=== PATIENT | male | born 1970 | race Caucasian/White ===

== ENCOUNTER 2018-07-30 15:41 | Outpatient (CLI) | payer MEDICARE, MEDICAID, SELFPAY ==
[2018-07-30 16:58] LABS: Iron 105 ug/dL (50-175); Total Iron Binding Capacity 339 ug/dL (250-450); Transferrin Sat 31 % (20-55)
[2018-07-30 17:08] LABS: Ferritin 304 ng/mL (8-388); Lipase 128 U/L (73-393)
== END 2018-07-30 16:01 ==
PROVIDERS: PCP Family Medicine; Visit Provider Family Medicine
DX: D50.9 Iron deficiency anemia, unspecified (principal); K85.30 Drug induced acute pancreatitis without necrosis or infection
CPT/HCPCS: 36415; 83690; 82728; 83540; 83550

== ENCOUNTER 2018-11-26 13:24 | Emergency (ER) | payer MEDICARE, MEDICAID, SELFPAY ==
[2018-11-26 13:31] VITALS: BP 151/86; PULSE 109; RESP 69; TEMP 36.8; O2SAT 94
--- NOTE | 2018-11-26 13:45 | W.ED.GENAD ---
Discharge Plan Disposition Patient Disposition: HOME Condition: Stable Discharge Details Chief Complaint: Cellulitis Clinical Impression: Rash Primary Care Provider: Kumar Tinsley ED Provider: Carlos Prather Home Meds and New Rx's Prescriptions: New sulfamethoxazole-trimethoprim [Bactrim DS] 800-160 mg tablet 1 tab PO BID Qty: 14 RF: 0 Continued metoprolol succinate 100 MG tablet extended release 24 hr 100 mg PO DAILY RF: 0 acyclovir 400 MG tablet 400 mg PO BID RF: 0 aspirin [Aspir-Low] 81 MG tablet,delayed release (DR/EC) 81 mg PO DAILY RF: 0 ferrous sulfate 325 MG tablet 325 mg PO DAILY RF: 0 zolpidem 10 MG tablet 10 mg PO HS PRN PRNQty: 1 RF: 0 amitriptyline 150 MG tablet 150 mg PO HS Qty: 1 RF: 0 chlorpromazine 100 MG tablet 500 mg PO DAILY RF: 0 quetiapine 400 MG tablet 800 mg PO DAILY RF: 0 temazepam 30 MG capsule 30 mg PO HS PRN (Reason: Insomnia) RF: 0 lisinopril 10 MG tablet 10 mg PO DAILY RF: 0 Discharge Instructions Instructions: Acute Rash (ED) Additional Instructions: At this time the rash doesn't appear to be a bacteria. We set up a follow up appointment with Dr. Tinsley on 12/01, friday ,at 1:50pm. If the rash becomes hot to touch or you have pain return to the emergency department If you feel you are having severe worsening of pain, difficulty breathing or high fevers return to the emergency department Medical Decision Making 47 yo male with hx of bipolar, prior drug abuse but denies this now, who comes in with rash. He states since yesterday he has had redness to the right forehead, left hand inbetween the thumb and index finger posteriorly, and also on the left elbow. Denies pain, fevesr, new meds, foods or detergents. He states he did have staph infection 7 years or so ago. He has a 4x3cm area of mild erythema of the right forehead without fluctuance, pain with palpation or warmth. On the left hand has 1x2cm area of redness of the left posterior hand that is again not painful or warm to touch, and a 1x1cm on the right medial elbow that againis not tender or warm and has no swelling of any joints will full rom. I suspect contact dermatitis but given his hx I am going to prescribe bactrim with clear instructions to only fill it if he develops pain or rash becomes warm to touch. Set up f/u appt with pcp 12/01 and return precautions given Differential Diagnosis contact dermatitis, urticaria, cellulitis HPI General Mode of arrival: ambulatory. Date/Time Provider Initiated Documentation: 11/26/18 13:35. Limitations to Documentation: no limitations. Information obtained by: patient. History of Present Illness 47 year old M presents to the emergency department with the chief complaint of rash, and is localized to the head, right and upper extremity. Patient reports no radiation. Patient started experiencing this day(s) (1) and it has been constant. No relieving factors improve symptom(s), No exacerbating factors reported . Patient did receive the following treatments prior to arrival, none Related Data Home Medications Medication Instructions Recorded Confirmed metoprolol succinate 100 mg PO DAILY 03/06/13 11/26/18 acyclovir 400 mg PO BID 07/26/14 11/26/18 aspirin [Aspir-Low] 81 mg PO DAILY 07/26/14 11/26/18 ferrous sulfate 325 mg PO DAILY 07/26/14 11/26/18 amitriptyline 150 mg PO HS #1 tablet 09/16/15 11/26/18 zolpidem 10 mg PO HS PRN PRN #1 tab 09/16/15 11/26/18 chlorpromazine 500 mg PO DAILY 06/25/16 11/26/18 lisinopril 10 mg PO DAILY 06/25/16 11/26/18 quetiapine 800 mg PO DAILY 06/25/16 11/26/18 temazepam 30 mg PO HS PRN 06/25/16 11/26/18 sulfamethoxazole-trimethoprim 1 tab PO BID #14 tab 11/26/18 [Bactrim DS] Previous Rx's Medication Instructions Recorded amitriptyline 150 mg PO HS #1 tablet 09/16/15 zolpidem 10 mg PO HS PRN PRN #1 tab 09/16/15 sulfamethoxazole-trimethoprim 1 tab PO BID #14 tab 11/26/18 [Bactrim DS] Allergies Allergy/AdvReac Type Severity Reaction Status Date / Time No Known Allergies Allergy Unverified 11/26/18 13:34 General Stated Complaint: Cellulitis EFREN: 3 Review of Systems Review of Systems All systems reviewed & are unremarkable except as noted in HPI and below Constitutional Denies chills, Denies fever(s) and Denies weakness ENT Denies change in voice Cardiovascular Denies chest pain and Denies dyspnea Respiratory Denies cough and Denies dyspnea Gastrointestinal Denies abdominal pain, Denies nausea and Denies vomiting Genitourinary Denies dysuria Musculoskeletal Denies joint swelling Neurologic Denies weakness Endocrine Denies heat intolerance [facility] Medical History Alcohol abuse Bipolar 1 disorder Chronic back pain Hypertension Schizoaffective disorder Surgical History EGD/COLONOSCOPY W/MAC (08/18/15) Family History Mother Personal history of malignant neoplasm Social History Smoking and Tabacco status: Unknown Exam Const General: no acute distress Orientation: alert HENMT Head: no palpable skull fracture Ears: external ears normal General nose exam: external nose normal Mouth: moist mucous membranes Eyes General: appearance normal, both eyes and all related structures Neck Neck: normal visual inspection Resp Effort & Inspection: normal respiratory effort and able to speak in complete sentences Cardio Rate: regular rate Skin General skin exam: elasticity normal and turgor normal Neuro General: alert and oriented x3 Extrem General: normal to inspection Psych Mental Status: mental status grossly normal Course Vital Signs Temperature 36.8 C 11/26/18 13:31 Pulse 109 H 11/26/18 13:31 Respiratory Rate 69 H 11/26/18 13:31 Blood Pressure 151/86 H 11/26/18 13:31 Pulse Oximetry 94 L 11/26/18 13:31 Temperature 36.8 C 11/26/18 13:31 Temperature Source Skin 11/26/18 13:31 Pulse 109 H 11/26/18 13:31 Respiratory Rate 69 H 11/26/18 13:31 Respiratory Effort Non-Labored 11/26/18 13:31 Blood Pressure 151/86 H 11/26/18 13:31 Blood Pressure Position Sitting 11/26/18 13:31 Pulse Oximetry 94 L 11/26/18 13:31 Oxygen Delivery Method Room Air 11/26/18 13:31 Oxygen Flow Rate 0 11/26/18 13:31 Pain Level 0 11/26/18 13:31
--- NOTE | 2018-11-26 13:48 | NUR.NOTE ---
Nursing Note: Appt. made for patient with Dr. Tinsley for @ 1:50pm. Kirsten Simmons.
== END 2018-11-26 13:55 | disposition home or self-care (01) ==
PROVIDERS: Emergency Provider Emergency Medicine; PCP Family Medicine
DX: R21 Rash and other nonspecific skin eruption (principal); I10 Essential (primary) hypertension
CPT/HCPCS: 99283

== ENCOUNTER 2018-12-09 17:58 | Emergency (ER) | payer MEDICARE, MEDICAID, SELFPAY ==
[2018-12-09 18:00] VITALS: BP 139/69; PULSE 94; RESP 16; TEMP 36.4; O2SAT 94
--- NOTE | 2018-12-09 18:14 | ED.GENADUL_ITS ---
Discharge Plan Disposition Patient Disposition: HOME Condition: Stable Discharge Details Chief Complaint: Cellulitis Clinical Impression: Rash Primary Care Provider: Kumar Tinsley ED Provider: Debbie Colin Home Meds and New Rx's Prescriptions: New mupirocin calcium [Bactroban] 2 % cream 1 applic TP BID Qty: 15 RF: 0 cephalexin [Keflex] 500 mg capsule 500 mg PO TID 7 Days Qty: 21 RF: 0 Continued metoprolol succinate 100 MG tablet extended release 24 hr 100 mg PO DAILY RF: 0 acyclovir 400 MG tablet 400 mg PO BID RF: 0 aspirin [Aspir-Low] 81 MG tablet,delayed release (DR/EC) 81 mg PO DAILY RF: 0 ferrous sulfate 325 MG tablet 325 mg PO DAILY RF: 0 zolpidem 10 MG tablet 10 mg PO HS PRN PRNQty: 1 RF: 0 amitriptyline 150 MG tablet 150 mg PO HS Qty: 1 RF: 0 chlorpromazine 100 MG tablet 500 mg PO DAILY RF: 0 quetiapine 400 MG tablet 800 mg PO DAILY RF: 0 temazepam 30 MG capsule 30 mg PO HS PRN (Reason: Insomnia) RF: 0 lisinopril 10 MG tablet 10 mg PO DAILY RF: 0 Discharge Instructions Instructions: Acute Rash (ED) Additional Instructions: Keep area clean and dry. Apply the topical antibiotic ointment to your left hand twice daily for the next few days. If you have any worsening of symptoms, you may fill and start taking the oral antibiotic prescription. Follow-up with your primary care doctor in 1 week for reevaluation. Return immediately to the emergency department any worsening or new concerning symptoms. Discharge Data Discharge Date/Time-TO BE ENTERED AT DEPARTURE: 12/09/18 18:26 Discharge Physician: Debbie Colin Medical Decision Making 47yo M who presents with request for antibiotic prescription. Patient was seen here almost 2 weeks ago for a rash noted to his right forehead, left hand, and right elbow and diagnosed with a mild skin infection and sent home with a prescription for Bactrim only to start if his symptoms do not improve or worsen. Patient states he took and finished the Bactrim and states his rash is nearly but not fully resolved. Patient has an area of faint scaly erythema to his right forehead but no obvious infection. He has a 1 x 1 cm crust with mild surrounding erythema to his left dorsal hand webspace between first and second finger but no evidence of abscess. He also has a patch of scaly hypopigmented papules on right elbow. Overall I am not concerned about any of these areas with an obvious acute infection, only possibly the left hand which I think would improve with topical antibiotics. Will send home with a prescription for Bactroban. Will also give a prescription for Keflex to take if his symptoms worsen. Instructed to f/u with the pcp for re-evaluation and to return here if worse. HPI General Mode of arrival: ambulatory . Date/Time Provider Initiated Documentation: 12/09/18 17:58 . Limitations to Documentation: no limitations . Information obtained by: patient . HPI Narrative: Patient is a 47-year-old male who presents to the ED for a request for an antibiotic prescription. Patient was seen here almost 2 weeks ago for a rash to his left hand, right forehead and right elbow for 1 day. Patient was given a prescription for Bactrim which he was instructed to fill if his symptoms did not improve or worsen. Patient states he took the Bactrim and that his rash improved but states that it is not completely resolved and he is requesting another prescription. He denies any pain associated with his rash, itching or fever. He states he has been eating and drinking normally. Related Data Home Medications Medication Instructions Recorded Confirmed metoprolol succinate 100 mg PO DAILY 03/06/13 12/09/18 acyclovir 400 mg PO BID 07/26/14 12/09/18 aspirin [Aspir-Low] 81 mg PO DAILY 07/26/14 12/09/18 ferrous sulfate 325 mg PO DAILY 07/26/14 12/09/18 amitriptyline 150 mg PO HS #1 tablet 09/16/15 12/09/18 zolpidem 10 mg PO HS PRN PRN #1 tab 09/16/15 12/09/18 chlorpromazine 500 mg PO DAILY 06/25/16 12/09/18 lisinopril 10 mg PO DAILY 06/25/16 12/09/18 quetiapine 800 mg PO DAILY 06/25/16 12/09/18 temazepam 30 mg PO HS PRN 06/25/16 12/09/18 cephalexin [Keflex] 500 mg PO TID 7 Days #21 cap 12/09/18 mupirocin calcium [Bactroban] 1 applic TP BID #15 gm 12/09/18 Previous Rx's Medication Instructions Recorded amitriptyline 150 mg PO HS #1 tablet 09/16/15 zolpidem 10 mg PO HS PRN PRN #1 tab 09/16/15 cephalexin [Keflex] 500 mg PO TID 7 Days #21 cap 12/09/18 mupirocin calcium [Bactroban] 1 applic TP BID #15 gm 12/09/18 Allergies Allergy/AdvReac Type Severity Reaction Status Date / Time No Known Allergies Allergy Unverified 12/09/18 18:06 General Stated Complaint: Cellulitis EFREN: 4 Review of Systems Review of Systems All systems reviewed & are unremarkable except as noted in HPI and below Constitutional Reports as per HPI, Denies chills and Denies fever(s) Eyes Denies blurry vision ENT Denies dizziness, Denies sore throat and Denies throat swelling Cardiovascular Denies chest pain and Denies dyspnea Respiratory Denies cough and Denies dyspnea Gastrointestinal Denies abdominal pain, Denies diarrhea and Denies vomiting Genitourinary Denies hematuria and Denies dysuria Musculoskeletal Denies back pain and Denies numbness Integumentary/Breasts Denies lesions and Reports rash Neurologic Denies dizziness, Denies focal weakness and Denies numbness Allergic/Immunologic Denies throat swelling PFSH Medical History Pancreatitis (Chronic) Alcohol abuse Bipolar 1 disorder Chronic back pain Hypertension Schizoaffective disorder Surgical History EGD/COLONOSCOPY W/MAC (08/18/15) Family History Mother Personal history of malignant neoplasm Social History Smoking and Tabacco status: Unknown alcohol intake: current alcohol intake frequency: a few times a month substance use type: former substance user Exam Const General: cooperative, healthy appearing and no acute distress HENMT Head: normal to inspection Mouth: oral mucosae normal Eyes General: appearance normal, both eyes and all related structures Neck Neck: normal visual inspection Resp Effort & Inspection: normal respiratory effort and able to speak in complete sentences Cardio Rate: regular rate Skin Other: Faint scaly erythema noted to right forehead, nontender, no induration, fluctuance or tenderness. There is a 1 x 1 cm crust noted to the left dorsal webspace between first and second finger with very minimal surrounding erythema and no tenderness to palpation, induration or fluctuance. No abscess noted. There is also a cluster of hypopigmented scaly papules on the olecranon of the right elbow. There is no erythema, edema, tenderness, induration or fluctuance. Neuro General: alert, awake and oriented x3 Motor: muscle tone normal throughout Extrem General: normal to inspection and full ROM Psych Appearance: grossly normal Affect: normal affect Course Vital Signs Temperature 97.5 F L 12/09/18 18:00 Pulse 94 H 12/09/18 18:00 Respiratory Rate 16 12/09/18 18:00 Blood Pressure 139/69 12/09/18 18:00 Pulse Oximetry 94 L 12/09/18 18:00 Temperature 97.5 F L 12/09/18 18:00 Temperature Source Skin 12/09/18 18:00 Pulse 94 H 12/09/18 18:00 Respiratory Rate 16 12/09/18 18:00 Respiratory Effort 12/09/18 18:07 Blood Pressure 139/69 12/09/18 18:00 Blood Pressure Position Sitting 12/09/18 18:00 Pulse Oximetry 94 L 12/09/18 18:00 Oxygen Delivery Method Room Air 12/09/18 18:00 Oxygen Flow Rate 0 12/09/18 18:00 Pain Level 2 12/09/18 18:00
== END 2018-12-09 18:26 | disposition home or self-care (01) ==
PROVIDERS: Emergency Provider Physician Assistant; PCP Family Medicine
DX: R21 Rash and other nonspecific skin eruption (principal); I10 Essential (primary) hypertension
CPT/HCPCS: 99283

== ENCOUNTER 2019-04-24 19:02 | Emergency (ER) | payer MEDICARE, MEDICAID, SELFPAY ==
[2019-04-24 19:03] VITALS: BP 151/94; PULSE 86; RESP 20; TEMP 36.8; O2SAT 93
--- NOTE | 2019-04-24 19:15 | W.ED.GENAD ---
Discharge Plan Disposition Patient Disposition: HOME Condition: Stable Discharge Details Chief Complaint: RashLesion Clinical Impression: Non-healing wound of right heel Primary Care Provider: Kumar Tinsley ED Provider: Carlos Prather Home Meds and New Rx's Prescriptions: New cephalexin 500 mg tablet 500 mg PO TID Qty: 15 RF: 0 No Action metoprolol succinate 100 MG tablet extended release 24 hr 100 mg PO DAILY RF: 0 acyclovir 400 MG tablet 400 mg PO BID RF: 0 aspirin [Aspir-Low] 81 MG tablet,delayed release (DR/EC) 81 mg PO DAILY RF: 0 ferrous sulfate 325 MG tablet 325 mg PO DAILY RF: 0 zolpidem 10 MG tablet 10 mg PO HS PRN PRNQty: 1 RF: 0 amitriptyline 150 MG tablet 150 mg PO HS Qty: 1 RF: 0 quetiapine 400 MG tablet 800 mg PO DAILY RF: 0 lisinopril 10 MG tablet 10 mg PO DAILY RF: 0 mupirocin calcium [Bactroban] 2 % cream 1 applic TP BID Qty: 15 RF: 0 lorazepam 2 mg Tablet 3 mg PO HS RF: 0 metformin 1,000 mg Tablet PO DAILY RF: 0 Discharge Instructions Instructions: Chronic Wound Care (ED) Additional Instructions: follow up with your primary care provider within 1-2 weeks if you have high fevers or severe worsening of pain return to the emergency department Medical Decision Making 48 yo male comes in with right heal wound that he has had since he states he sustained an abrasion while on vacation in [facility]. He took abx while there that he finished a week ago and is not sure of what he took. Comes in today becuase of bleeding. He has 1cm scab on the right posterior heal and has mild erythema that is not warm to touch or tender surrounding it by about 2cm. No crepitus or systemic symptoms to suggest nec fsac, sepsis or osteo. I suspect this is a chronic wound due to his diabetes and I am not convinced it is acutely infeced but pt is requesting abx despite my recommendations. i will start on cephalexin and advised f/u with pcp and return precautions given Differential Diagnosis cellulitis, chronic wound HPI General Mode of arrival: ambulatory. Date/Time Provider Initiated Documentation: 04/24/19 19:06. Limitations to Documentation: no limitations. Information obtained by: patient. History of Present Illness 48 year old M presents to the emergency department with the chief complaint of right heal wound, described as moderate, Quality is described as aching, and is localized to the right and lower extremity. Patient reports no radiation. Patient started experiencing this week(s) (2) and it has been constant. No relieving factors improve symptom(s), No exacerbating factors reported . Patient notes no other symptoms.. Related Data Home Medications Medication Instructions Recorded Confirmed metoprolol succinate 100 mg PO DAILY 03/06/13 04/24/19 acyclovir 400 mg PO BID 07/26/14 04/24/19 aspirin [Aspir-Low] 81 mg PO DAILY 07/26/14 04/24/19 ferrous sulfate 325 mg PO DAILY 07/26/14 04/24/19 amitriptyline 150 mg PO HS #1 tablet 09/16/15 04/24/19 zolpidem 10 mg PO HS PRN PRN #1 tab 09/16/15 04/24/19 lisinopril 10 mg PO DAILY 06/25/16 04/24/19 quetiapine 800 mg PO DAILY 06/25/16 04/24/19 mupirocin calcium [Bactroban] 1 applic TP BID #15 gm 12/09/18 04/24/19 cephalexin 500 mg PO TID #15 tab 04/24/19 lorazepam 3 mg PO HS 04/24/19 04/24/19 metformin mg PO DAILY 04/24/19 Previous Rx's Medication Instructions Recorded amitriptyline 150 mg PO HS #1 tablet 09/16/15 zolpidem 10 mg PO HS PRN PRN #1 tab 09/16/15 mupirocin calcium [Bactroban] 1 applic TP BID #15 gm 12/09/18 cephalexin 500 mg PO TID #15 tab 04/24/19 Allergies Allergy/AdvReac Type Severity Reaction Status Date / Time No Known Allergies Allergy Unverified 04/24/19 19:07 General Stated Complaint: RashLesion EFREN: 4 Review of Systems Review of Systems All systems reviewed & are unremarkable except as noted in HPI and below Constitutional Denies chills, Denies fever(s) and Denies weakness Cardiovascular Denies chest pain and Denies dyspnea Respiratory Denies cough and Denies dyspnea Gastrointestinal Denies abdominal pain, Denies nausea and Denies vomiting Musculoskeletal Denies joint swelling Neurologic Denies weakness [facility] Medical History (Updated 12/09/18 @ 18:13 by Debbie Colin DO) Alcohol abuse Bipolar 1 disorder Chronic back pain Hypertension Pancreatitis (Chronic) Schizoaffective disorder Social History Smoking/Tobacco Use Status: Unknown Alcohol Intake: current Alcohol Intake frequency: a few times a month Drug use: Current Sobriety Substance use type: former substance user Do you feel safe at home: Yes Do you feel safe in your relationship?: Yes Exam Const General: no acute distress Orientation: alert HENMT Head: normal to inspection Ears: external ears normal General nose exam: external nose normal Mouth: moist mucous membranes Eyes General: appearance normal, both eyes and all related structures Neck Neck: normal visual inspection Resp Effort & Inspection: normal respiratory effort and able to speak in complete sentences Cardio Rate: regular rate Skin General skin exam: elasticity normal Neuro General: alert and oriented x3 Extrem General: full ROM and normal capillary refill Psych Mental Status: mental status grossly normal Course Vital Signs Temperature 36.8 C 04/24/19 19:03 Pulse 86 04/24/19 19:03 Respiratory Rate 20 04/24/19 19:03 Blood Pressure 151/94 H 04/24/19 19:03 Pulse Oximetry 93 L 04/24/19 19:03 Temperature 36.8 C 04/24/19 19:03 Temperature Source Temporal Artery Scan 04/24/19 19:03 Pulse 86 04/24/19 19:03 Respiratory Rate 20 04/24/19 19:03 Respiratory Effort Non-Labored 04/24/19 19:03 Blood Pressure 151/94 H 04/24/19 19:03 Blood Pressure Position Sitting 04/24/19 19:03 Pulse Oximetry 93 L 04/24/19 19:03 Oxygen Delivery Method Room Air 04/24/19 19:03 Oxygen Flow Rate 0 04/24/19 19:03 Pain Level 6 04/24/19 19:03
[2019-04-24] MEDS: Cephalexin 500 MG CAP PO (19:37)
== END 2019-04-24 19:40 | disposition home or self-care (01) ==
PROVIDERS: Emergency Provider Emergency Medicine; PCP Family Medicine
DX: E11.621 Type 2 diabetes mellitus with foot ulcer (principal); I10 Essential (primary) hypertension; Z79.84 Long term (current) use of oral hypoglycemic drugs; L97.411 Non-pressure chronic ulcer of right heel and midfoot limited to breakdown of skin
CPT/HCPCS: 99283

== ENCOUNTER 2019-06-04 16:29 | Outpatient (CLI) | payer MEDICARE, MEDICAID, SELFPAY ==
[2019-06-04 17:02] LABS: HGB 13.7 g/dL (13.5-17.5); Mean Corp. HGB Concentration 36.1 g/dL (32.0-36.0); Mean Corpuscular Hemoglobin 31.1 pg (27.0-33.0); Mean Corpuscular Volume 86.2 fL (80-95); Mean Platelet Volume 10.3 fL (8.0-11.0); Platelet Count 316 x1000/uL (130-400); RBC 4.41 m/cumm (4.50-6.00); RBC Distribution Width 12.3 % (11.8-14.1); White Blood Cell Count 7.57 k/cumm (4.4-10.8)
[2019-06-04 17:50] LABS: ALT 44 U/L (16-63); AST 21 U/L (15-37); Albumin 4.1 g/dL (3.4-5.0); Alkaline Phosphatase 94 U/L (46-116); Anion Gap 12.1 mmol/L (3-11); BUN 18 mg/dL (7-18); Bilirubin, Total 0.3 mg/dL (0.2-1.0); CO2 24.9 mmol/L (21.0-32.0); CREATININE 0.99 mg/dL (0.70-1.30); Calcium 9.1 mg/dL (8.5-10.1); Chloride 93 mmol/L (98-107); Folate 18.4 ng/mL (8.6-20.0); Glucose 100 mg/dL (70-100); Magnesium 1.8 mg/dL (1.8-2.4); Potassium 4.7 mmol/L (3.5-5.1); Sodium 130 mmol/L (136-145); Total Protein 7.9 g/dL (6.4-8.2); Vitamin B12 432 pg/mL (193-986)
== END 2019-06-04 16:49 ==
PROVIDERS: PCP Family Medicine; Visit Provider Family Medicine
DX: D64.9 Anemia, unspecified (principal); I10 Essential (primary) hypertension
CPT/HCPCS: 36415; 80053; 85027; 82607; 82746; 83735

== ENCOUNTER → 2019-09-23 14:23 | Outpatient (BNVA) | payer MEDICARE, MEDICAID, SELFPAY | PROVIDERS: PCP Family Medicine; Referring Provider Family Medicine; Visit Provider Physical Therapy Assistant | DX: Z12.11 Encounter for screening for malignant neoplasm of colon (principal); Z80.0 Family history of malignant neoplasm of digestive organs; I10 Essential (primary) hypertension ==

== ENCOUNTER 2019-10-04 18:13 | Emergency (ER) | payer MEDICARE, MEDICAID, SELFPAY ==
[2019-10-04 18:18] VITALS: BP 163/89; PULSE 108; RESP 21; TEMP 36.3; O2SAT 93
--- NOTE | 2019-10-04 18:30 | W.ED.GENAD ---
Discharge Plan Disposition Patient Disposition: HOME Condition: Good Discharge Details Chief Complaint: DentalOral Clinical Impression: Pain, dental Primary Care Provider: Kumar Tinsley ED Provider: Campos Rosas Home Meds and New Rx's Prescriptions: New amoxicillin-pot clavulanate [Augmentin] 875-125 mg tablet 1 tab PO BID 10 Days Qty: 20 RF: 0 No Action polyethylene glycol 3350 17 gram/dose powder 238 g PO ONCE Qty: 238 RF: 0 bisacodyl [Dulcolax (bisacodyl)] 5 mg tablet,delayed release (DR/EC) 5 mg PO ONCE Qty: 4 RF: 0 atorvastatin 10 mg tablet 10 mg PO QHS RF: 0 acyclovir 400 mg tablet 400 mg PO TID Qty: 30 RF: 2 metoprolol succinate 100 MG tablet extended release 24 hr 100 mg PO DAILY RF: 0 zolpidem 10 MG tablet 10 mg PO HS PRN PRNQty: 1 RF: 0 amitriptyline 150 MG tablet 150 mg PO HS Qty: 1 RF: 0 quetiapine 400 MG tablet 800 mg PO DAILY RF: 0 lisinopril 10 MG tablet 10 mg PO DAILY RF: 0 metformin 1,000 mg Tablet 1,000 mg PO DAILY RF: 0 Discharge Instructions Instructions: Toothache (ED) Additional Instructions: At this time you have a small dental abscess. Although you are requested to hold off on any aspiration of the abscess if you do change your mind and would like us to drain it please return immediately for this. Please take the antibiotic as directed. Please take it also with yogurt with live cultures to prevent any diarrhea. Please continue taking 800 mg of ibuprofen every 6 hours. Please follow-up closely with your dentist. If you notice any worsening of your symptoms, or any new symptoms such as vomiting, diarrhea, fever, chills, shortness of breath, chest pain, numbness, weakness, or fainting , please return immediately to the emergency department for reevaluation. Please follow up with your primary care provider as soon as possible for reassessment and reevaluation. As always, it was a pleasure participating in your medical care today. Referrals: Kumar Tinsley [Primary Care Provider] - Medical Decision Making This is a pleasant 48-year-old male with a past medical history of dental caries who presents today for evaluation of right upper dental pain. Is been present for the last 2 days. He has scheduled tooth removal/extraction on October 14. Ibuprofen completely relieves his pain. He denies fever chills or drainage. Physical exam demonstrates minimal swelling. I&D of apical space as well as dental block was offered but the patient has notably refused this. He states that the pain is well manageable with his ibuprofen. He does not want Tylenol secondary to his regular alcohol use. We will give Augmentin for coverage of infection, and recommend close follow-up with his dentist. Discussed red flags which to return. I have extensively reviewed the treatment plan and discharge instructions with the patient. I have addressed all patient concerns at this time. The patient was made aware of what symptoms to monitor for that would warrant a return to the emergency department. Discussed the plan with the patient, they demonstrate verbal understanding and agreement with our assessment and plan at this time. HPI General Date/Time Provider Initiated Documentation: 10/04/19 18:22. HPI Narrative: This is a 48-year-old male with a past medical history of dental pain and dental caries who presents today for evaluation of right upper dental pain. The patient states that he has had previous upper molars removed, and he is scheduled to have his right upper molar removed on 14 October. Unfortunately over the last 2 to 3 days he has had mild pain that is completely resolved with ibuprofen however he is also noticed mild swelling in the right upper face. He denies fever or chills. He denies drainage. He denies any other complaints at this time. He states that this feels identical to his previous abscess. No other modifying factors. Related Data Home Medications Medication Instructions Recorded Confirmed metoprolol succinate 100 mg PO DAILY 03/06/13 10/04/19 amitriptyline 150 mg PO HS #1 tab 09/16/15 10/04/19 zolpidem 10 mg PO HS PRN PRN #1 tab 09/16/15 10/04/19 lisinopril 10 mg PO DAILY 06/25/16 10/04/19 quetiapine 800 mg PO DAILY 06/25/16 10/04/19 metformin 1,000 mg PO DAILY 04/24/19 10/04/19 acyclovir 400 mg tablet 400 mg PO TID #30 tab 05/23/19 10/04/19 atorvastatin 10 mg tablet 10 mg PO QHS 08/12/19 10/04/19 bisacodyl 5 mg tablet,delayed 5 mg PO ONCE #4 tab 09/23/19 10/04/19 release polyethylene glycol 3350 17 238 g PO ONCE #238 gm 09/23/19 10/04/19 gram/dose oral powder amoxicillin-pot clavulanate 1 tab PO BID 10 Days #20 tab 10/04/19 [Augmentin] Previous Rx's Medication Instructions Recorded amitriptyline 150 mg PO HS #1 tab 09/16/15 zolpidem 10 mg PO HS PRN PRN #1 tab 09/16/15 acyclovir 400 mg tablet 400 mg PO TID #30 tab 05/23/19 bisacodyl 5 mg tablet,delayed 5 mg PO ONCE #4 tab 09/23/19 release polyethylene glycol 3350 17 238 g PO ONCE #238 gm 09/23/19 gram/dose oral powder amoxicillin-pot clavulanate 1 tab PO BID 10 Days #20 tab 10/04/19 [Augmentin] Allergies Allergy/AdvReac Type Severity Reaction Status Date / Time No Known Allergies Allergy Unverified 10/04/19 18:20 General Stated Complaint: DentalOral EFREN: 4 Review of Systems All systems reviewed & are unremarkable except as noted in HPI and below PFSH Social History (Updated 09/23/19 @ 15:52 by KIERRA Patel) Smoking/Tobacco Use Status: Current every day Tobacco Type: cigarettes Smoking packs per day: 0.5 Smoking cigarettes per day: 10.0 Alcohol Intake: current Alcohol Intake frequency: a few times a week Drug use: Current Sobriety Substance use type: former substance user Do you feel safe at home: Yes Do you feel safe in your relationship?: Yes Exam Narrative Exam Narrative: 1.Const: Well-nourished, Well-developed, appearing stated age 2.Eyes: PERRL, no conjunctival injection, and symmetrical lids. 3.ENT: Atraumatic external nose and ears. Moist MM. Neck: Symmetric, trachea midline, No thyromegaly. Right upper molar area demonstrates a small amount of swelling over the periapical space, minimal fluctuance. No drainage. Notable dental caries. No evidence of large abscess. Patient demonstrates good movement of cervical neck. There is no nuchal rigidity, no nuchal tenderness. Patient is able to flex the neck without any difficulty or significant pain. Negative Kernig's and Brudzinski sign. 4.CVS: +S1/S2, No murmurs or gallops. Peripheral pulses 2+ and equal in all extremities. Brisk capillary refill in all extremities. 5.RESP: Unlabored respiratory effort. Clear to auscultation bilaterally. No wheezes rales or rhonchi 6.GI: Soft, Nontender/Nondistended, No hepatosplenomegaly. No guarding or rebound. 7.MSK: Normocephalic/Atraumatic, Extremities w/o deformity or ttp No cyanosis or clubbing, Normal movement of all extremities 8.Skin: Warm, Dry. No rashes or lesions. 9.Neuro: fibre optics jointer II-XII grossly intact. Sensation grossly intact, no focal neurologic deficits. 10.Psych: (AAO) x3. Appropriate mood and affect Course Vital Signs Vital signs: Vital Signs Temperature 36.3 C L 10/04/19 18:18 Pulse 108 H 10/04/19 18:18 Respiratory Rate 21 10/04/19 18:18 Blood Pressure 163/89 H 10/04/19 18:18 Pulse Oximetry 93 L 10/04/19 18:18 Temperature 36.3 C L 10/04/19 18:18 Temperature Source Skin 10/04/19 18:18 Pulse 108 H 10/04/19 18:18 Respiratory Rate 21 10/04/19 18:18 Respiratory Effort 10/04/19 18:23 Blood Pressure 163/89 H 10/04/19 18:18 Blood Pressure Position Sitting 10/04/19 18:18 Pulse Oximetry 93 L 10/04/19 18:18 Oxygen Delivery Method Room Air 10/04/19 18:18 Oxygen Flow Rate 0 10/04/19 18:18 Pain Level 3 10/04/19 18:18
[2019-10-04] MEDS: Amox. 875/Clav. 125, 2 TABS/BTL 1 TAB PO (18:40)
== END 2019-10-04 18:45 | disposition home or self-care (01) ==
PROVIDERS: Emergency Provider Student in an Organized Health Care Education/Training Program; PCP Family Medicine
DX: R68.84 Jaw pain (principal); K04.7 Periapical abscess without sinus
CPT/HCPCS: 99283

== ENCOUNTER 2019-11-28 16:36 | Observation (INO) | payer MEDICARE, MEDICAID, SELFPAY ==
[2019-11-28] VITALS (66 sets, daily range): BP systolic 93–156; BP diastolic 55–91; PULSE 78–118; RESP 13–28; TEMP 36.7–37.7; O2SAT 82–97
[2019-11-28] MEDS: Midazolam 5 MG/5 ML VIAL (16:49)
[2019-11-28] MEDS: Normal Saline 1,000 ML 1000 ML IV (17:10)
--- NOTE | 2019-11-28 17:12 | ED.GENADUL_ITS ---
Discharge Plan Disposition Patient Disposition: [facility] INPATIENT Condition: Stable Discharge Details Chief Complaint: OD/Poison Clinical Impression: Alcohol intoxication, Intentional overdose of drug in tablet form Admit Date/Time: 11/28/19 19:28 Admit Provider: Carlos Longo Attending Provider: Celina Soliman Primary Care Provider: Kumar Tinsley ED Provider: Carlos Prather Hospital Course Hospital Course: Mr Kincaid is a 48 year old male with h/o Bipolar d/o, schizoaffective d/o, h/o prior drug overdoses and alcohol abuse, who was observed on [facility] hospitalist service in the ICU from 11/28/2019 until 11/29/2019 after a suspected intentional overdose of amitriptyline reported by patient's family. The patient adamantly denies this. He also had alcohol intoxication. The patient did not have any evidence of electrocardiogram/rhythm abnormalities on this admission. He did have urinary retention of 1800 cc on insertion of hoover catheter. He required behavioral restraints in the ER as well as in the ICU for violent behavior and was verbally abusive to staff. He was evaluated by mental health on 11/29/2019 and was found to be not suicidal or risk to self and, therefore, cleared. The patient is not yet medically cleared as he has not been able to void post removal of hoover catheter, but would like to go home against medical advice. He acknowledges that there are no guarantees that he will be able to urinate/empty his bladder fully at home. There has been no evidence of alcohol withdrawal while under observation on hospitalist service. He refused physical exam on day of leaving AMA. He is advised to follow up with his PCP CARO[facility] and with mental health. He is leaving the hospital today without any new prescriptions as he is leaving AMA. Care for patient as well as completion of this discharge summary took 45 minutes on day of him leaving AMA. Discharge Instructions Instructions: Urinary Retention in Men (GEN), Against Medical Advice (DC) Additional Instructions: Follow up with your PCP and mental health [facility]. Referrals: Kumar Tinsley [Primary Care Provider] - Discharge Data Discharge Date/Time-TO BE ENTERED AT DEPARTURE: 11/28/19 21:31 Medical Decision Making <Burke Doyle MD - Last Filed: 11/30/19 23:08> 17:10 --patient was seen immediately on arrival with EMS and law enforcement. Patient verbally threatening and aggressive toward EMS and to ED staff on arrival. I attempted to de-escalate the situation. Patient refusing IV access. I explained to patient the absolute need to obtain IV access to check labs and administer medication. Patient refused. I am concerned about patient's wellbeing and that he may have intentionally overdosed on amitriptyline. Patient was assisted to bed by security staff who were present during transfer of care from EMS. Patient was restrained for his own protection with the assistance of security staff. Versed 5 mg IM was administered by nursing under my direction. Screening ECG was reviewed and interpreted by me: Sinus tachycardia 120 bpm, normal axis, QTC 497, QRS duration 112. I did call and speak with the [facility] and discussed ED presentation. They note that if patient indeed took number 14 tablets of amitriptyline, he may start to exhibit severe TCA overdose signs including altered mental status with coma and arrhythmia. At this time they recommend checking screening labs and monitoring patient closely. 18:38 --repeat ECG was reviewed and interpreted by me: Sinus tachycardia 106 bpm, normal axis, QTC 446, QRS duration 110. Patient remains agitated, threatening towards staff, at risk of harming self or others. Plan to continue restraints. I will give additional Versed 2 mg IV for anxiety and agitation. Labs reviewed and patient does have alcohol level of 228. Plan will be for admission to ICU for continuous monitoring. It is not clear at this point if patient truly ingested TCAs. 18:48 --I spoke to on-call hospitalist, Dr. Daniels, discussed ED presentation and course. He will admit patient to ICU. I called and spoke with clerical warehouse worker about admission. I had a [id number] with the patient. Patient continues to be verbally threatening towards staff and the family members of staff. He continues to be aggressive despite de-escalation techniques. Plan to continue restraints at this time. <Carlos Prather MD - Last Filed: 11/28/19 20:36> pt still aggressive and a threat to other staff while waiting admission, still requiring restraints on face to face HPI <Burke Doyle MD - Last Filed: 11/30/19 23:08> General Mode of arrival: EMS . Date/Time Provider Initiated Documentation: 11/28/19 16:39 . Limitations to Documentation: altered mental status . Information obtained by: patient and EMS . HPI Narrative: 48-year-old male with history of bipolar disorder, schizoaffective disorder, drug abuse in the past, alcohol abuse in the past, here with EMS after possible ingestion of prescribed amitriptyline and alcohol abuse. History and review of systems is limited secondary to altered mental status and patient not forthcoming. Per EMS, they note patient's mother called with concern that he took all of his amitriptyline. We called pharmacy and patient did have amitriptyline 100 mg tablets refilled today, #14. Is unclear at this time as to if patient took all 14 tablets. Patient was also prescribed lorazepam today. Related Data Home Medications Medication Instructions Recorded Confirmed metoprolol succinate 100 mg PO DAILY 03/06/13 11/28/19 amitriptyline 150 mg PO HS #1 tab 09/16/15 11/28/19 zolpidem 10 mg PO HS PRN PRN #1 tab 09/16/15 11/28/19 lisinopril 10 mg PO DAILY 06/25/16 11/28/19 quetiapine 800 mg PO DAILY 06/25/16 11/28/19 metformin 500 mg PO DAILY 04/24/19 11/28/19 acyclovir 400 mg tablet 400 mg PO TID #30 tab 05/23/19 11/28/19 atorvastatin 10 mg tablet 10 mg PO QHS 08/12/19 11/28/19 bisacodyl 5 mg tablet,delayed 5 mg PO ONCE #4 tab 09/23/19 11/28/19 release polyethylene glycol 3350 17 238 g PO ONCE #238 gm 09/23/19 11/28/19 gram/dose oral powder temazepam 30 mg PO QHS 11/28/19 11/28/19 Previous Rx's Medication Instructions Recorded amitriptyline 150 mg PO HS #1 tab 09/16/15 zolpidem 10 mg PO HS PRN PRN #1 tab 09/16/15 acyclovir 400 mg tablet 400 mg PO TID #30 tab 05/23/19 bisacodyl 5 mg tablet,delayed 5 mg PO ONCE #4 tab 09/23/19 release polyethylene glycol 3350 17 238 g PO ONCE #238 gm 09/23/19 gram/dose oral powder Allergies Allergy/AdvReac Type Severity Reaction Status Date / Time No Known Allergies Allergy Unverified 10/04/19 18:20 General Stated Complaint: OD/Poison EFREN: 2 Review of Systems <Burke Doyle MD - Last Filed: 11/30/19 23:08> Unobtainable due to mental status PFSH <Burke Doyle MD - Last Filed: 11/30/19 23:08> Medical History (Updated 11/29/19 @ 12:14 by Celina Soliman MD) Alcohol abuse Bipolar 1 disorder Chronic back pain Hypertension Pancreatitis (Chronic) recurrent drug overdoses (Chronic) 2019 Schizoaffective disorder Surgical History EGD/COLONOSCOPY W/MAC (08/18/15) DR. SALVADOR PINON Family History Mother Personal history of malignant neoplasm colon cancer Social History Smoking/Tobacco Use Status: Current every day Tobacco Type: cigarettes Smoking packs per day: 0.5 Smoking cigarettes per day: 10.0 Alcohol Intake: current Alcohol Intake frequency: a few times a week Alcohol type: hard liquor Drug use: Current Sobriety Substance use type: former substance user Do you feel safe at home: Yes Do you feel safe in your relationship?: Yes Exam <Burke Doyle MD - Last Filed: 11/30/19 23:08> Const General: uncooperative, acute distress, anxious and combative Nutritional Appearance: well nourished Orientation: alert and awake Limitations: behavioral limitations [facility] Head: normocephalic and atraumatic Mouth: moist mucous membranes Eyes Conjunctivae: normal conjunctivae Sclera: normal sclerae Neck Neck: trachea midline and supple Resp Auscultation: clear to auscultation bilaterally, no rales, no rhonchi and no wheezes Cardio Jugular venous pressure: no JVD Rate: tachycardic Rhythm: regular rhythm GI Palpation: soft, not firm, no guarding, no masses, not rigid and nontender Skin General skin exam: no rashes or lesions noted Neuro General: alert, awake, oriented x3 and tone normal Extrem General: no edema Psych Speech and Movement: agitated Affect: labile affect Attitude: belligerent Other: Patient is verbally threatening towards staff Course <Burke Doyle MD - Last Filed: 11/30/19 23:08> Vital Signs Vital signs: Vital Signs Temperature 37.7 C H 11/28/19 16:33 Pulse 118 H 11/28/19 16:33 Blood Pressure 156/81 H 11/28/19 16:33 Pulse Oximetry 93 L 11/28/19 16:33 Temperature 37.7 C H 11/28/19 16:33 Temperature Source Temporal Artery Scan 11/28/19 16:33 Pulse 118 H 11/28/19 16:33 Respiratory Rate 20 11/28/19 17:02 Respiratory Effort Non-Labored 11/28/19 17:02 Respiratory Depth Normal 11/28/19 17:02 Blood Pressure 156/81 H 11/28/19 16:33 Blood Pressure Position Supine 11/28/19 16:33 Pulse Oximetry 93 L 11/28/19 16:33 Oxygen Delivery Method Room Air 11/28/19 16:33 Oxygen Flow Rate 0 11/28/19 16:33 Restraint Face to Face <Burke Doyle MD - Last Filed: 11/30/19 23:08> Time of Face to Face Face to Face: Time of Face to Face: 16:40 Patient's Immediate Situation Requiring Restraints/Seclusion: Harm to Staff & Others Patient Response to Restraints: Tolerating without Problems Patient's Medical & Behavioral Condition: Aggression, combativeness, suicidal with potential overdose. Need for Continuation of Restraints Has Been Assessed: Restraints Continued Sign Out <Burke Doyle MD - Last Filed: 11/30/19 23:08> Sign Out Data: Sign Out Comment: Patient pending admission to ICU. Last updated by Burke Doyle MD at 11/28/19 19:47
[2019-11-28 17:20] LABS: Abs Immature Grans 0.02 k/cumm (0.0-0.09); Absolute Basophil Count 0.02 k/cumm (0.0-0.2); Absolute Lymphocyte Count 1.78 k/cumm (1.2-3.4); Absolute Monocyte Count 0.28 k/cumm (0.11-0.7); Absolute Neutrophil Count 2.57 k/cumm (1.2-6.7); Basophils % 0.4; Eosinophils % 2.1; HCT 39.8 % (40.0-50.0); HGB 14.5 g/dL (13.5-17.5); Immature Grans % 0.4 %; Lymphocytes % 37.3; Mean Corp. HGB Concentration 36.4 g/dL (32.0-36.0); Mean Corpuscular Hemoglobin 30.7 pg (27.0-33.0); Mean Corpuscular Volume 84.1 fL (80-95); Mean Platelet Volume 9.6 fL (8.0-11.0); Monocytes % 5.9; Neutrophils % 53.9; Platelet Count 308 x1000/uL (130-400); RBC 4.73 m/cumm (4.50-6.00); RBC Distribution Width 12.8 % (11.8-14.1); White Blood Cell Count 4.77 k/cumm (4.4-10.8)
[2019-11-28 17:26] LABS: ETHANOL BLOOD 228.9 mg/dL (<3)
[2019-11-28 17:33] LABS: ALT 33 U/L (16-63); AST 19 U/L (15-37); Albumin 4.2 g/dL (3.4-5.0); Alkaline Phosphatase 91 U/L (46-116); Anion Gap 12.8 mmol/L (3-11); BUN 13 mg/dL (7-18); Bilirubin, Total 0.2 mg/dL (0.2-1.0); CO2 25.2 mmol/L (21.0-32.0); CREATININE 1.11 mg/dL (0.70-1.30); Calcium 8.3 mg/dL (8.5-10.1); Chloride 99 mmol/L (98-107); Glucose 188 mg/dL (74-106); Potassium 4.2 mmol/L (3.5-5.1); Sodium 137 mmol/L (136-145); Total Protein 8.1 g/dL (6.4-8.2)
[2019-11-28 17:35] LABS: Troponin I < 0.05 ng/Ml (<0.06)
[2019-11-28 17:49] LABS: Acetaminophen < 2 ug/mL (10-30); Salicylate < 2.8 mg/dL (2.8-20.0)
[2019-11-28] MEDS: Midazolam 2 MG/2 ML VIAL IVP (18:41)
[2019-11-28] MEDS: Normal Saline 1,000 ML 150 ML IV ×2 (19:00→21:40)
--- NOTE | 2019-11-28 20:19 | PDOC.CMSAFED ---
- If Service Date Differs Date of service: 11/28/19 Time of Service: 20:19 Care Management Safety Plan Chief Complaint: Jose is a 48 year old male who lives alone in an apartment in [facility]. He presents in the ED tonight via EMS and law enforcement. According to his mother, Jose drank a bottle of vodka and possibly took an overdose of Amitriptyline. She also reports he has not slept in several days. While in the ED, Jose becomes agitated to the point where he has to be put in restraints. He screams and cusses at nursing staff and demands to go home. His blood alcohol level at time of arrival is 228. CM will respond to ED to assess patient after patient has been medically cleared and assessed by screener. If screener deems patient meets criteria for psychiatric stabilization, CM will facilitate interdepartmental huddle with [facility] screener for safety planning considerations and meet with patient to review [facility] policy and safety plan, establish individual wishes for treatment and maintain patient rights. In the interim; please note safety plan below to guide patient care while awaiting further assessment by [facility] screener. SAFETY PLAN: 1. Will remain on suicide precautions and in paper clothes. 2. Will remain in room under direct supervision of one-on-one staff at all times provided by [employer], MANAGER EVENT, SUPERVISOR [employer] circular gang saw operator. 3. May have paper cups, plates, finger foods as well as a metal spoon with which to eat meals. [facility] staff will be responsible for accounting of utensils after meals. 4. Follow [facility] Management of the Admitted Behavioral Health Patient policy. 5. Comfort bath system only. 6. No personal belongings. 7. No visitors at this time. 8. No phone privileges at this time. 9. Due to VOLUNTARY status, if patient wishes to leave [facility], the [facility] construction worker must be contacted to re-evaluate patient prior to patient exiting the building. If deemed appropriate for inpatient psychiatric care, safety plan will be established with patient, and care team, to adhere to patient goals, identify restrictions based on behavioral status, address nutrition, and determine allowed personal belongings, tools for hygiene and personal care. As well plan will determine level of activity including ambulation, level of supervision, visitors, and determine privileges based on level of acuity, behaviors and level of engagement by patient.
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
[2019-11-28] MEDS: LORazepam 2 MG/ML VIAL IVP (21:01)
[2019-11-28 23:53] LABS: Anion Gap 10.4 mmol/L (3-11); BUN 14 mg/dL (7-18); CO2 25.6 mmol/L (21.0-32.0); CREATININE 1.01 mg/dL (0.70-1.30); Calcium 8.1 mg/dL (8.5-10.1); Chloride 101 mmol/L (98-107); Glucose 100 mg/dL (74-106); Potassium 4.1 mmol/L (3.5-5.1); Sodium 137 mmol/L (136-145)
[2019-11-28 23:54] LABS: Acetaminophen < 2 ug/mL (10-30)
[2019-11-29] VITALS (40 sets, daily range): BP systolic 87–129; BP diastolic 46–101; PULSE 72–96; RESP 14–24; TEMP 36.1–36.5; O2SAT 87–93
[2019-11-29 06:34] LABS: Abs Immature Grans 0.02 k/cumm (0.0-0.09); Absolute Basophil Count 0.02 k/cumm (0.0-0.2); Absolute Eosinophil Count 0.09 k/cumm (0.0-0.7); Absolute Lymphocyte Count 1.73 k/cumm (1.2-3.4); Absolute Monocyte Count 0.53 k/cumm (0.11-0.7); Absolute Neutrophil Count 3.77 k/cumm (1.2-6.7); Basophils % 0.3; Eosinophils % 1.5; HCT 37.6 % (40.0-50.0); HGB 13.1 g/dL (13.5-17.5); Immature Grans % 0.3 %; Lymphocytes % 28.1; Mean Corp. HGB Concentration 34.8 g/dL (32.0-36.0); Mean Corpuscular Hemoglobin 30.5 pg (27.0-33.0); Mean Corpuscular Volume 87.4 fL (80-95); Mean Platelet Volume 9.5 fL (8.0-11.0); Monocytes % 8.6; Neutrophils % 61.2; Platelet Count 300 x1000/uL (130-400); RBC Distribution Width 13.1 % (11.8-14.1); White Blood Cell Count 6.16 k/cumm (4.4-10.8)
[2019-11-29 06:48] LABS: ETHANOL BLOOD 26.2 mg/dL (<3)
[2019-11-29 07:04] LABS: ALT 28 U/L (16-63); AST 22 U/L (15-37); Albumin 3.4 g/dL (3.4-5.0); Alkaline Phosphatase 75 U/L (46-116); Anion Gap 13.4 mmol/L (3-11); BUN 15 mg/dL (7-18); Bilirubin, Total 0.2 mg/dL (0.2-1.0); CO2 23.6 mmol/L (21.0-32.0); Calcium 7.7 mg/dL (8.5-10.1); Chloride 104 mmol/L (98-107); Glucose 97 mg/dL (74-106); Potassium 3.9 mmol/L (3.5-5.1); Sodium 141 mmol/L (136-145); Total Protein 6.8 g/dL (6.4-8.2)
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
[2019-11-29 08:52] LABS: Magnesium 1.9 mg/dL (1.8-2.4)
[2019-11-29] MEDS: THIAMINE 100 MG in Normal Saline 100 ML 200 MG IVPB (09:00)
--- NOTE | 2019-11-29 09:22 | NUR.NOTE ---
Nursing Note: YARA Smart asked about how the patient arrived in the ED. I looked at Dr. Prather's report and gave her the information. Kirsten Simmons.
--- NOTE | 2019-11-29 09:32 | PDOC.MHCN ---
Date of service: 11/29/19 Time of Service: 08:00 Mental Health Crisis Note Presenting Issue How did you arrive at the ED and why did you come: Patient arrived at the ED 11/28/2019 due to his mother calling EMS because she was concerned that patient had taken more medication than he was supposed to. Client was moved to ICU. Precipitating Factors ES worker met with patient 11/29/2019 Patient stated that he did not know why he was at the hospital. Patient stated the last thing he remembers is taking his sleeping meds and going to bed. patient denies SI and HI and would like to return home. Disposition BEHAVIOR: calm, cooperative during evaluation. EYE CONTACT: good MOOD: calm, tired AFFECT: flat APPETITE: okay SLEEP(trouble falling/staying asleep: okay Plan Patient will remain at [facility] until medically cleared by the doctor. Signature Clinician's Name/Title: Berry BALDERRAMA clinician
[2019-11-29] MEDS: MAGNESIUM SULFATE 8.12 MEQ, MULTIVITAMIN 10 ML, THIAMINE 100 MG, FOLIC ACID 1 MG in Nor... 150 MG IV (09:52)
--- NOTE | 2019-11-29 12:14 | W.PM.DS.N ---
Date of service: 11/29/19 Time of Service: 12:14 DS: Diagnosis Discharge Diagnosis (1) Intentional overdose of drug in tablet form: Status: Ruled-out Asessment and Plan: Patient denies overdose entirely; cleared by mental health (2) Alcohol intoxication: Status: Acute (3) Bipolar disorder: Status: Chronic (4) Recurrent HSV (herpes simplex virus): Status: Chronic (5) Urinary retention: Status: Acute Asessment and Plan: Refusing to stay in the hospital for a voiding trial Discharge Plan Disposition Patient Disposition: AGAINST MEDICAL ADVICE Condition: Stable Discharge Details Chief Complaint: OD/Poison Clinical Impression: Alcohol intoxication, Intentional overdose of drug in tablet form Reason For Visit: INTOXICATED/ DRUG OD/ SUICIDAL Admit Date/Time: 11/28/19 19:28 Admit Provider: Carlos Longo Attending Provider: Carlos Longo Primary Care Provider: Kumar Tinsley ED Provider: Carlos Prather Hospital Course Hospital Course: Mr Kincaid is a 48 year old male with h/o Bipolar d/o, schizoaffective d/o, h/o prior drug overdoses and alcohol abuse, who was observed on [facility] hospitalist service in the ICU from 11/28/2019 until 11/29/2019 after a suspected intentional overdose of amitriptyline reported by patient's family. The patient adamantly denies this. He also had alcohol intoxication. The patient did not have any evidence of electrocardiogram/rhythm abnormalities on this admission. He did have urinary retention of 1800 cc on insertion of hoover catheter. He required behavioral restraints in the ER as well as in the ICU for violent behavior and was verbally abusive to staff. He was evaluated by mental health on 11/29/2019 and was found to be not suicidal or risk to self and, therefore, cleared. The patient is not yet medically cleared as he has not been able to void post removal of hoover catheter, but would like to go home against medical advice. He acknowledges that there are no guarantees that he will be able to urinate/empty his bladder fully at home. There has been no evidence of alcohol withdrawal while under observation on hospitalist service. He refused physical exam on day of leaving AMA. He is advised to follow up with his PCP CAROLE and with mental health. He is leaving the hospital today without any new prescriptions as he is leaving AMA. Care for patient as well as completion of this discharge summary took 45 minutes on day of him leaving [place]. Home Meds and New Rx's Prescriptions: No Action polyethylene glycol 3350 17 gram/dose powder 238 g PO ONCE Qty: 238 RF: 0 bisacodyl [Dulcolax (bisacodyl)] 5 mg tablet,delayed release (DR/EC) 5 mg PO ONCE Qty: 4 RF: 0 atorvastatin 10 mg tablet 10 mg PO QHS RF: 0 acyclovir 400 mg tablet 400 mg PO TID Qty: 30 RF: 2 metoprolol succinate 100 MG tablet extended release 24 hr 100 mg PO DAILY RF: 0 zolpidem 10 MG tablet 10 mg PO HS PRN PRNQty: 1 RF: 0 amitriptyline 150 MG tablet 150 mg PO HS Qty: 1 RF: 0 quetiapine 400 MG tablet 800 mg PO DAILY RF: 0 lisinopril 10 MG tablet 10 mg PO DAILY RF: 0 metformin 1,000 mg Tablet 500 mg PO DAILY RF: 0 temazepam 30 mg Capsule 30 mg PO QHS RF: 0 Discharge Instructions Instructions: Urinary Retention in Men (GEN), Against Medical Advice (DC) Additional Instructions: Follow up with your PCP and mental health CARLOE. Referrals: Kumar Tinsley [Primary Care Provider] - Activity:: Activity as Tolerated Equipment/Supplies:: No Equipment Needed Diet:: As Tolerated Discharge Orders Discharge Orders: Discharge Order (Routine); Ordered 11/29/19 Ordered By: Celina Soliman DS: Summary Status at Discharge Functional status at discharge: independent ambulation Overall status at discharge: patient is progressing back to baseline (we are unable to evaluate for resolution of urinary retention as patient is leaving AMA) Mental Status: mental status grossly normal Speech and Movement: speech and movement normal Mood: congruent mood Affect: normal affect Exam Narrative Exam Narrative: General: obese male, eating lunch, refuses auscultation, easily agitated HEENT: EOMI, MMM Heart: refused auscultation Lungs: non-labored breathing; refuses auscultation Abdomen: obese/rotund; refuses physical exam Extremities: no visible edema; refuses physical exam Psych Mental Status: mental status grossly normal Speech and Movement: speech and movement normal Mood: congruent mood Affect: normal affect DS: Data Vitals/I&O Vitals and I&O: Vital Signs Temperature 36.3 C L 11/29/19 12:06 Temperature Source Temporal Artery Scan 11/29/19 12:06 Pulse 78 11/29/19 12:02 Pulse 96 H 11/29/19 12:02 Respiratory Rate 22 11/29/19 12:02 Respiratory Effort Non-Labored 11/29/19 12:06 Respiratory Depth Normal 11/29/19 12:06 Respiratory Pattern Normal 11/29/19 12:06 Blood Pressure 119/101 H 11/29/19 12:02 Blood Pressure Mean 105 11/29/19 12:02 Blood Pressure Position Supine 11/29/19 12:06 Pulse Oximetry 93 L 11/29/19 09:31 Oxygen Delivery Method Room Air 11/29/19 12:06 Oxygen Flow Rate 0 11/29/19 12:06 Pain Level 0 11/29/19 12:06 Intake & Output 11/28/19 11/29/19 11/29/19 23:59 11:59 23:59 Intake Total 1510 / 1510 745 / 745 Output Total 2708 / 2708 Balance 1510 / 1510 -1963 / -1963 Weight 113.2 kg 110.8 kg Intake: IV 1410 / 1410 745 / 745 Oral 100 / 100 Output: Urine 2650 / 2650 Post Void Residual 58 / 58 Other: Urine Color Yellow Urine Appearance Clear Comment hoover in place. Data Completed and Pending Labs on day of discharge: Labs from last 24 hours 11/29/19 11/29/19 11/29/19 06:05 06:05 06:05 WBC 6.16 RBC 4.30 L Hgb 13.1 L Hct 37.6 L MCV 87.4 D MCH 30.5 MCHC 34.8 RDW 13.1 Plt Count 300 MPV 9.5 Immature Gran % 0.3 Neutrophils % 61.2 Lymphocytes % 28.1 Monocytes % 8.6 Eosinophils % 1.5 Basophils % 0.3 Absolute Neutrophils 3.77 Absolute Lymphocytes 1.73 Absolute Monocytes 0.53 Absolute Eosinophils 0.09 Absolute Basophils 0.02 Sodium 141 Potassium 3.9 Chloride 104 Carbon Dioxide 23.6 Anion Gap 13.4 H BUN 15 Creatinine 1.00 Estimated GFR/1.73 m2 >= 60.00 Glucose 97 Calcium 7.7 L Magnesium 1.9 Total Bilirubin 0.2 AST 22 ALT 28 Alkaline Phosphatase 75 Troponin I Total Protein 6.8 Albumin 3.4 Salicylates Urine Opiates Screen Urine Methadone Screen Acetaminophen Ur Barbiturates Screen Ur Tricyclics Screen Ur Amphetamines Screen U Benzodiazepines Scrn Urine Cocaine Screen Ur THC Screen Ethyl Alcohol 26.2 11/28/19 11/28/19 11/28/19 23:30 17:32 16:55 WBC 4.77 RBC 4.73 Hgb 14.5 Hct 39.8 L MCV 84.1 MCH 30.7 MCHC 36.4 H RDW 12.8 Plt Count 308 MPV 9.6 Immature Gran % 0.4 Neutrophils % 53.9 Lymphocytes % 37.3 Monocytes % 5.9 Eosinophils % 2.1 Basophils % 0.4 Absolute Neutrophils 2.57 Absolute Lymphocytes 1.78 Absolute Monocytes 0.28 Absolute Eosinophils 0.10 Absolute Basophils 0.02 Sodium 137 Potassium 4.1 Chloride 101 Carbon Dioxide 25.6 Anion Gap 10.4 BUN 14 Creatinine 1.01 Estimated GFR/1.73 m2 >= 60.00 Glucose 100 D Calcium 8.1 L Magnesium Total Bilirubin AST ALT Alkaline Phosphatase Troponin I Total Protein Albumin Salicylates Urine Opiates Screen Pending Urine Methadone Screen Pending Acetaminophen < 2 Ur Barbiturates Screen Pending Ur Tricyclics Screen Pending Ur Amphetamines Screen Pending U Benzodiazepines Scrn Pending Urine Cocaine Screen Pending Ur THC Screen Pending Ethyl Alcohol 11/28/19 11/28/19 11/28/19 16:55 16:55 16:55 WBC RBC Hgb Hct MCV MCH MCHC RDW Plt Count MPV Immature Gran % Neutrophils % Lymphocytes % Monocytes % Eosinophils % Basophils % Absolute Neutrophils Absolute Lymphocytes Absolute Monocytes Absolute Eosinophils Absolute Basophils Sodium 137 Potassium 4.2 Chloride 99 Carbon Dioxide 25.2 Anion Gap 12.8 H BUN 13 Creatinine 1.11 Estimated GFR/1.73 m2 >= 60.00 Glucose 188 H Calcium 8.3 L Magnesium Total Bilirubin 0.2 AST 19 ALT 33 Alkaline Phosphatase 91 Troponin I < 0.05 Total Protein 8.1 Albumin 4.2 Salicylates < 2.8 Urine Opiates Screen Urine Methadone Screen Acetaminophen < 2 Ur Barbiturates Screen Ur Tricyclics Screen Ur Amphetamines Screen U Benzodiazepines Scrn Urine Cocaine Screen Ur THC Screen Ethyl Alcohol 228.9 [facility] Medical History (Updated 11/29/19 @ 12:14 by Celina Soliman MD) Alcohol abuse Bipolar 1 disorder Chronic back pain Hypertension Pancreatitis (Chronic) recurrent drug overdoses (Chronic) 2019 Schizoaffective disorder Surgical History EGD/COLONOSCOPY W/MAC (08/18/15) DR. SALVADOR PINON Family History Mother Personal history of malignant neoplasm colon cancer Social History Smoking/Tobacco Use Status: Current every day Tobacco Type: cigarettes Smoking packs per day: 0.5 Smoking cigarettes per day: 10.0 Alcohol Intake: current Alcohol Intake frequency: a few times a week Alcohol type: hard liquor Drug use: Current Sobriety Substance use type: former substance user Do you feel safe at home: Yes Do you feel safe in your relationship?: Yes
--- NOTE | 2019-11-29 12:51 | W.NUTCONSULT ---
Date of service: 11/29/19 Time of Service: 12:51 Nutritional Consult ASSESSMENT: 48 year old male admitted to ICU for possible drug overdose. PMH: Bipolar Disorder, Drug/ETOH abuse, obesity. BMI indicates morbid obesity. Following regular diet with adequate intake. Vitamins/Minerals appropriately repleted with history. DM consult pending due to elevated blood sugars. Not at nutritional risk at this time. MONITORING AND EVALUATION: po intake, weight, labs Time Spent in Nutritional Counseling and Treatment: 0 time spent face to face
--- NOTE | 2019-11-29 19:35 | PDOC.CMDIS ---
- If Service Date Differs Date of service: 11/29/19 Time of Service: 19:35 LACE Index Scoring Tool - Questions: Length of Stay (in days): 1 Acuity (Admit via E.D.?): Yes E.D. Visits: 5 - Answers: Total Score: 8 Risk of Readmission: Low Risk Care Management Discharge Reason for Hospitalization: intentional drug overdose Discharge Plan: Jose left the hospital against medical advice. Patient/Family Education Needs: Limitations, Discharge plan
== END 2019-11-29 12:50 | disposition left against medical advice (07) ==
LOC: ER 20:23 → ICU 21:27
PROVIDERS: Student in an Organized Health Care Education/Training Program; Admitting Provider Family Medicine; Emergency Provider Emergency Medicine; PCP Family Medicine; Visit Provider Internal Medicine
DX: F10.220 Alcohol dependence with intoxication, uncomplicated (principal); Z53.29 Procedure and treatment not carried out because of patient's decision for other reasons; Y90.7 Blood alcohol level of 200-239 mg/100 ml; F25.0 Schizoaffective disorder, bipolar type; B00.9 Herpesviral infection, unspecified; R33.9 Retention of urine, unspecified; Z78.1 Physical restraint status; R45.6 Violent behavior; F91.8 Other conduct disorders; I10 Essential (primary) hypertension; F17.210 Nicotine dependence, cigarettes, uncomplicated
CPT/HCPCS: 36415; 80048; 80053; 80307; 93005; 96361; 96372; 96374; 96375; 99220; 99239; 99285; 80320; 80329; 83735; 84484; 85025; 93010; 99217; G0378; J2060; J2250

== ENCOUNTER 2020-01-27 02:43 | Emergency (ER) | payer MEDICARE, MEDICAID, SELFPAY ==
[2020-01-27 02:43] VITALS: BP 124/68; PULSE 88; RESP 16; TEMP 36.6; O2SAT 96
--- NOTE | 2020-01-27 02:44 | ED.GENADUL_ITS ---
Discharge Plan Disposition Patient Disposition: HOME Condition: Good Discharge Details Chief Complaint: Orthopedic Clinical Impression: Left hip pain, Left shoulder pain Primary Care Provider: Kumar Tinsley ED Provider: Andrzej Han Meds and New Rx's Prescriptions: Continued atorvastatin 10 mg tablet 10 mg PO QHS RF: 0 acyclovir 400 mg tablet 400 mg PO TID Qty: 30 RF: 2 metoprolol succinate 100 MG tablet extended release 24 hr 100 mg PO DAILY RF: 0 zolpidem 10 MG tablet 10 mg PO HS PRN PRNQty: 1 RF: 0 amitriptyline 150 MG tablet 150 mg PO HS Qty: 1 RF: 0 quetiapine 400 MG tablet 800 mg PO DAILY RF: 0 lisinopril 10 MG tablet 10 mg PO DAILY RF: 0 metformin 1,000 mg Tablet 500 mg PO DAILY RF: 0 temazepam 30 mg Capsule 30 mg PO QHS RF: 0 Discharge Instructions Additional Instructions: Recommend using heat and ibuprofen 6 to 800 mg every 6-8 hours for the next couple of days. Gentle stretching and walking to loosen things up. Contact primary care for follow-up. Return to ED for fever, joint swelling or redness, Referrals: Kumar Tinsley [Primary Care Provider] - Medical Decision Making Patient is already taking 800 of ibuprofen. He is requesting cortisone injectio ns. I have informed him that that is not considered an emergency procedure and that I am not privileged in it. I also recommended given that his symptoms have only been present for 2 hours it would not be first line treatment. Treatment would be rest, nonsteroidals, heat and follow-up with primary care. Patient then asked why he came in in the first place. Patient was reminded that EMS told him that the recommendation was Tylenol and Motrin and contact primary care. Patient has normal vital signs and is afebrile. He is in no distress. He has complaints of left shoulder and left hip pain which he has had previously. There is no trauma. He is normal neurologically. There is no acute medical emergency and patient will be discharged to follow-up with primary care. Medical Records Medical records reviewed: Yes I reviewed the patient's medical records. HPI General Mode of arrival: EMS . Date/Time Provider Initiated Documentation: 01/27/20 02:44 . Limitations to Documentation: no limitations . Information obtained by: patient and old records reviewed . HPI Narrative: Patient presents to ED by ambulance with complaint of left shoulder and left hip pain. Reports that this is his bursitis and it is acting up all of a sudden because he fell asleep in his recliner on his left side. Feels like he cannot walk because the pain is so bad in his hip. He denies any illness. He has had no fever, cough, shortness of breath. No chest pain or back pain. He complains of numbness in his left foot. Complains of inability to move his shoulder or hip because of pain. He presents here requesting cortisone injection. He apparently did take 800 Motrin per EMS recommendations but insisted on being transported here anyway. Related Data Home Medications Medication Instructions Recorded Confirmed metoprolol succinate 100 mg PO DAILY 03/06/13 01/27/20 amitriptyline 150 mg PO HS #1 tab 09/16/15 01/27/20 zolpidem 10 mg PO HS PRN PRN #1 tab 09/16/15 01/27/20 lisinopril 10 mg PO DAILY 06/25/16 01/27/20 quetiapine 800 mg PO DAILY 06/25/16 01/27/20 metformin 500 mg PO DAILY 04/24/19 01/27/20 acyclovir 400 mg tablet 400 mg PO TID #30 tab 05/23/19 01/27/20 atorvastatin 10 mg tablet 10 mg PO QHS 08/12/19 01/27/20 temazepam 30 mg PO QHS 11/28/19 01/27/20 Previous Rx's Medication Instructions Recorded amitriptyline 150 mg PO HS #1 tab 09/16/15 zolpidem 10 mg PO HS PRN PRN #1 tab 09/16/15 acyclovir 400 mg tablet 400 mg PO TID #30 tab 05/23/19 Allergies Allergy/AdvReac Type Severity Reaction Status Date / Time No Known Allergies Allergy Unverified 01/27/20 02:48 General EFREN: 2 Review of Systems Narrative: As documented in HPI otherwise negative as below. Const: no fever, chills, weakness Resp: no cough, SOB, pleuritic pain CV: no CP, diaphoresis, edema, syncope GI: no abdominal pain, nausea, vomiting, diarrhea Neuro: no headache, focal weakness, confusion [facility] Medical History Alcohol abuse Bipolar 1 disorder Chronic back pain Hypertension Pancreatitis (Chronic) recurrent drug overdoses (Chronic) 2019 Schizoaffective disorder Surgical History EGD/COLONOSCOPY W/MAC (08/18/15) DR. SALVADOR PINON Social History Smoking/Tobacco Use Status: Current every day Tobacco Type: cigarettes Smoking packs per day: 0.5 Smoking cigarettes per day: 10.0 Alcohol Intake: current Alcohol Intake frequency: a few times a week Alcohol type: beer and hard liquor Drug use: Occasionally Substance use type: former substance user and marijuana Do you feel safe at home: Yes Do you feel safe in your relationship?: Yes Exam Narrative Exam Narrative: Vitals: Afebrile with normal vital signs and normal room air pulse oximetry. Const: Obese male in NAD. HEENT: NC/AT. Normal facial exam. Eyes: Normal conjunctiva and sclera. Neck: Supple. Trachea midline. Lungs: Normal respiratory effort. GI: Soft. NT/ND. Neuro: A+O x 3. Normal speech, mentation Cranial nerves II - XII grossly intact. No gross motor or sensory deficit. He is able to move all extremities with good strength but complains of pain. Sensation is intact including left foot despite complaint of numbness. Ext: No C/C/E. Some tenderness lateral left hip trochanteric area. No tenderness to shoulder. I am able to range all joints though he resists when trying to move his left hip. Skin: Warm and dry without rash.
== END 2020-01-27 03:15 | disposition home or self-care (01) ==
LOC: ER 03:21
PROVIDERS: Emergency Provider Emergency Medicine; PCP Family Medicine
DX: M25.552 Pain in left hip (principal); M25.512 Pain in left shoulder; I10 Essential (primary) hypertension
CPT/HCPCS: 99283; 99282

== ENCOUNTER 2020-04-06 21:38 | Outpatient (REF) | payer MEDICARE, MEDICAID, SELFPAY ==
[2020-04-06 18:44] LABS: HCT 41.2 % (40.0-50.0); HGB 14.7 g/dL (13.5-17.5); Mean Corp. HGB Concentration 35.7 g/dL (32.0-36.0); Mean Corpuscular Hemoglobin 30.6 pg (27.0-33.0); Mean Corpuscular Volume 85.8 fL (80-95); Mean Platelet Volume 10.1 fL (8.0-11.0); Platelet Count 302 x1000/uL (130-400); RBC Distribution Width 12.9 % (11.8-14.1); White Blood Cell Count 6.88 k/cumm (4.4-10.8)
[2020-04-06 19:09] LABS: Iron 95 ug/dL (65-175); Total Iron Binding Capacity 376 ug/dL (250-450); Transferrin Sat 25 % (20-55)
[2020-04-06 19:13] LABS: ALT 38 U/L (16-63); AST 20 U/L (15-37); Albumin 4.2 g/dL (3.4-5.0); Alkaline Phosphatase 98 U/L (46-116); Anion Gap 10.7 mmol/L (3-11); BUN 12 mg/dL (7-18); Bilirubin, Total 0.3 mg/dL (0.2-1.0); CO2 25.3 mmol/L (21.0-32.0); CREATININE 1.04 mg/dL (0.70-1.30); Calcium 9.3 mg/dL (8.5-10.1); Calculated LDL 62 mg/dL (<100); Chloride 97 mmol/L (98-107); Cholesterol 182 mg/dL (<200); Glucose 148 mg/dL (74-106); HDL Cholesterol 44 mg/dL (40-60); Magnesium 1.9 mg/dL (1.8-2.4); Sodium 133 mmol/L (136-145); TSH (W/Ref FT4) 1.33 uIU/mL (0.36-3.74); Triglyceride 382 mg/dL (<150)
== END 2020-04-06 21:58 ==
LOC: NCHCN 21:38
PROVIDERS: PCP Family Medicine; Visit Provider Family Medicine
DX: E83.51 Hypocalcemia (principal); R73.03 Prediabetes; E83.42 Hypomagnesemia; F10.10 Alcohol abuse, uncomplicated; E78.2 Mixed hyperlipidemia; D64.9 Anemia, unspecified
CPT/HCPCS: 80053; 80061; 82306; 85027; 83540; 83550; 83735; 84443

== ENCOUNTER 2020-04-14 15:30 | Emergency (ER) | payer MEDICARE, MEDICAID, SELFPAY ==
[2020-04-14 15:36] VITALS: BP 124/71; PULSE 111; RESP 18; TEMP 36.2; O2SAT 96
--- NOTE | 2020-04-14 15:52 | ED.GENADUL_ITS ---
Discharge Plan Disposition Patient Disposition: HOME Condition: Stable Discharge Details Chief Complaint: DentalOral Clinical Impression: Dental caries Primary Care Provider: Kumar Tinsley ED Provider: Lesa Ashley Home Meds and New Rx's Prescriptions: New clindamycin HCl 300 mg capsule 300 mg PO BID 7 Days Qty: 14 RF: 0 Continued atorvastatin 10 mg tablet 10 mg PO QHS RF: 0 acyclovir 400 mg tablet 400 mg PO TID Qty: 30 RF: 2 metoprolol succinate 100 MG tablet extended release 24 hr 100 mg PO DAILY RF: 0 zolpidem 10 MG tablet 10 mg PO HS PRN PRNQty: 1 RF: 0 amitriptyline 150 MG tablet 150 mg PO HS Qty: 1 RF: 0 quetiapine 400 MG tablet 800 mg PO DAILY RF: 0 lisinopril 10 MG tablet 10 mg PO DAILY RF: 0 lorazepam 2 mg Tablet 4 mg PO BID PRNRF: 0 metformin 1,000 mg Tablet 1,000 mg PO DAILY RF: 0 Discharge Instructions Instructions: Dental Caries (ED) Additional Instructions: Please be seen by dentist as instructed. Please attempt to stop smoking. Rinse mouth out with warm salt water after every meal. Take antibiotic as directed. Follow up with primary care provider in 3-5 days. Return to ED sooner if any worsening or concerns. Increase oral fluids. Referrals: Kumar Tinsley [Primary Care Provider] - Medical Decision Making 41-year-old male presents the ED with chief complaint of dental complaint. Patient states that he had 2 upper molars removed couple weeks ago at a dentist in [place]. He reports 2 days ago he noticed some increased swelling, no drainage, no facial swelling. Denies fever chills, problems swallowing. He does have a history of schizoaffective disorder, hypokalemia bipolar, he is a smoker. He denies any drug use. He is requesting antibiotics states he does not really have any pain. Instructed patient to be seen again with dentist. Will place patient on clindamycin for dental infection. Will give smoking cessation instructions. Will instruct to rinse mouth out after eating and drinking with tap water and salt. HPI General Mode of arrival: ambulatory . Date/Time Provider Initiated Documentation: 04/14/20 15:39 . Limitations to Documentation: no limitations . Information obtained by: patient . HPI Narrative: 41-year-old male presents the ED with chief complaint of dental complaint. Patient states that he had 2 upper molars removed couple weeks ago at a dentist in [place]. He reports 2 days ago he noticed some increased swelling, no drainage, no facial swelling. Denies fever chills, problems swallowing. He does have a history of schizoaffective disorder, hypokalemia bipolar, he is a smoker. He denies any drug use. He is requesting antibiotics states he does not really have any pain. Related Data Home Medications Medication Instructions Recorded Confirmed metoprolol succinate 100 mg PO DAILY 03/06/13 04/14/20 amitriptyline 150 mg PO HS #1 tab 09/16/15 04/14/20 zolpidem 10 mg PO HS PRN PRN #1 tab 09/16/15 04/14/20 lisinopril 10 mg PO DAILY 06/25/16 04/14/20 quetiapine 800 mg PO DAILY 06/25/16 04/14/20 metformin 1,000 mg PO DAILY 04/24/19 04/14/20 acyclovir 400 mg tablet 400 mg PO TID #30 tab 05/23/19 04/14/20 atorvastatin 10 mg tablet 10 mg PO QHS 08/12/19 04/14/20 clindamycin HCl 300 mg PO BID 7 Days #14 cap 04/14/20 lorazepam 4 mg PO BID PRN 04/14/20 04/14/20 Previous Rx's Medication Instructions Recorded amitriptyline 150 mg PO HS #1 tab 09/16/15 zolpidem 10 mg PO HS PRN PRN #1 tab 09/16/15 acyclovir 400 mg tablet 400 mg PO TID #30 tab 05/23/19 clindamycin HCl 300 mg PO BID 7 Days #14 cap 04/14/20 Allergies Allergy/AdvReac Type Severity Reaction Status Date / Time No Known Allergies Allergy Unverified 04/14/20 15:40 General Stated Complaint: DentalOral EFREN: 4 Review of Systems ENT Ears, Nose, Mouth, and Throat: Reports dental pain (Poor dentition gingival sw elling), Denies otalgia, Denies neck mass, Denies neck pain, Denies nose pain, Denies throat swelling and Denies tongue swelling Musculoskeletal Musculoskeletal: Denies neck pain Allergic/Immunologic Allergic/Immunologic: Denies throat swelling and Denies tongue swelling [facility] Medical History Alcohol abuse Bipolar 1 disorder Chronic back pain Hypertension Pancreatitis (Chronic) recurrent drug overdoses (Chronic) 2019 Schizoaffective disorder Surgical History EGD/COLONOSCOPY W/MAC (08/18/15) DR. SALVADOR PINON Family History Mother Personal history of malignant neoplasm colon cancer Social History Smoking/Tobacco Use Status: Current every day Tobacco Type: cigarettes Smoking packs per day: 0.5 Smoking cigarettes per day: 10.0 Alcohol Intake: current Alcohol Intake frequency: a few times a week Alcohol type: beer and hard liquor Drug use: Current Sobriety Substance use type: former substance user and marijuana Do you feel safe at home: Yes Do you feel safe in your relationship?: Yes Exam Narrative Exam Narrative: Constitutional: . Appears stated age. Normal body habitus. Head: Normocephalic, no trauma. Eyes: Pupils PERRLA, Red reflex noted, EOM's intact. Eyelids symmetrical without lesions, discharge, or swelling. ENT: Bilateral TM's WNL, External ear normal to inspection, no mastoid TTP, swelling, or erythema, Nasal turbinates WNL, no nasal discharge. He has multiple dental caries, some gingival pulling noted to his right incisors. He is missing right upper molars, there is some dark brown gum noted no area of fluctuance no drainage noted. Is mildly tender to palpation. Posterior pharynx WNL, no exudate. No anterior cervical lymphadenopathy. No postauricular lymphadenopathy. Chest: RRR, Normal S1, S2, distal pulses intact. Resp: Lungs clear to auscultation bilaterally, no wheezes, rales, or rhonchi. Neurologic: Cranial nerves II-XII intact. Alert and oriented x 3. DTR's intact. Hematologic/Lymphatic: No ecchymosis, no lymphadenopathy. Course Vital Signs Vital signs: Vital Signs Temperature 36.2 C L 04/14/20 15:36 Pulse 111 H 04/14/20 15:36 Respiratory Rate 18 04/14/20 15:36 Blood Pressure 124/71 04/14/20 15:36 Pulse Oximetry 96 04/14/20 15:36 Temperature 36.2 C L 04/14/20 15:36 Temperature Source Temporal Artery Scan 04/14/20 15:36 Pulse 111 H 04/14/20 15:36 Respiratory Rate 18 04/14/20 15:36 Respiratory Effort Non-Labored 04/14/20 15:43 Blood Pressure 124/71 04/14/20 15:36 Pulse Oximetry 96 04/14/20 15:36 Oxygen Delivery Method Room Air 04/14/20 15:36 Oxygen Flow Rate 0 04/14/20 15:36 Pain Level 0 04/14/20 15:43
== END 2020-04-14 16:09 | disposition home or self-care (01) ==
PROVIDERS: Emergency Provider Registered Nurse Emergency; PCP Family Medicine
DX: R68.84 Jaw pain (principal); T81.40XA Infection following a procedure, unspecified, initial encounter; Y84.8 Other medical procedures as the cause of abnormal reaction of the patient, or of later complication, without mention of misadventure at the time of the procedure; F17.210 Nicotine dependence, cigarettes, uncomplicated; I10 Essential (primary) hypertension
CPT/HCPCS: 99283

== ENCOUNTER → 2020-06-15 14:42 | Outpatient (BNVA) | payer MEDICARE, MEDICAID, SELFPAY | PROVIDERS: PCP Family Medicine; Referring Provider Family Medicine; Visit Provider Physical Therapy Assistant | DX: Z12.11 Encounter for screening for malignant neoplasm of colon (principal); Z80.0 Family history of malignant neoplasm of digestive organs; E11.9 Type 2 diabetes mellitus without complications; I10 Essential (primary) hypertension; Z79.84 Long term (current) use of oral hypoglycemic drugs ==

== ENCOUNTER 2020-10-10 22:53 | Outpatient (REF) | payer MEDICARE, MEDICAID, SELFPAY ==
[2020-10-10 18:13] LABS: Hemoglobin A1C 6.6 % (<5.7)
[2020-10-10 18:19] LABS: Anion Gap 8.4 mmol/L (3-11); BUN 24 mg/dL (7-18); CO2 26.6 mmol/L (21.0-32.0); CREATININE 1.31 mg/dL (0.70-1.30); Calcium 9.2 mg/dL (8.5-10.1); Chloride 101 mmol/L (98-107); Glucose 191 mg/dL (74-106); Potassium 4.4 mmol/L (3.5-5.1); Sodium 136 mmol/L (136-145); TSH (W/Ref FT4) 1.21 uIU/mL (0.36-3.74)
== END 2020-10-10 23:13 ==
LOC: NCHCN 22:53
PROVIDERS: PCP Family Medicine; Visit Provider Family Medicine
DX: E04.9 Nontoxic goiter, unspecified (principal); R73.03 Prediabetes; E87.1 Hypo-osmolality and hyponatremia
CPT/HCPCS: 80048; 83036; 84443

== ENCOUNTER → 2020-12-11 08:09 | Outpatient (BNVA) | payer MEDICARE, MEDICAID, SELFPAY | PROVIDERS: PCP Family Medicine; Referring Provider Family Medicine; Visit Provider Student in an Organized Health Care Education/Training Program | DX: G56.02 Carpal tunnel syndrome, left upper limb (principal); G56.01 Carpal tunnel syndrome, right upper limb; G56.22 Lesion of ulnar nerve, left upper limb; G56.21 Lesion of ulnar nerve, right upper limb; E11.9 Type 2 diabetes mellitus without complications; Z79.84 Long term (current) use of oral hypoglycemic drugs; F10.10 Alcohol abuse, uncomplicated | CPT/HCPCS: 99213 ==

== ENCOUNTER 2020-12-12 11:20 | Outpatient (REF) | payer MEDICARE, MEDICAID, SELFPAY ==
[2020-12-13 14:39] LABS: COVID-19 RT-PCR UVMMC Result Negative (Negative)
== END 2020-12-12 11:21 | disposition home or self-care (01) ==
LOC: NCHCN 11:20
PROVIDERS: PCP Family Medicine; Visit Provider Family Medicine
DX: Z20.822 Contact with and (suspected) exposure to COVID-19 (principal); J06.9 Acute upper respiratory infection, unspecified
CPT/HCPCS: U0003; U0005

== ENCOUNTER 2020-12-27 01:07 | Outpatient (CLI) | payer MEDICARE, MEDICAID, SELFPAY ==
--- NOTE | 2020-12-27 | DI.US_ITS ---
EXAM: US THYROID CLINICAL HISTORY: FEELING OF FULLNESS IN ANT NECK WITH SUBTLE ENLARGED THYROID. TECHNIQUE: Ultrasound thyroid performed using standard protocol. COMPARISON: No exams were available for comparison FINDINGS: Both thyroid lobes exhibit upper normal size. Right thyroid lobe measures 1.9 cm AP by 2.2 cm wide by 4 cm craniocaudal Left thyroid lobe measures 1.6 cm AP x 2 cm wide by 3.7 cm craniocaudal. The isthmus exhibits normal thickness. Tissue in both thyroid lobes is relatively homogeneous. There are no distinct thyroid nodules eviden t in either lobe. No obvious lymphadenopathy evident.. IMPRESSION: No significant ultrasound findings in the thyroid gland. DATA REPOSITORY:
== END 2020-12-27 01:27 ==
PROVIDERS: PCP Family Medicine; Visit Provider Family Medicine
DX: E04.8 Other specified nontoxic goiter (principal)
CPT/HCPCS: 76536